=== PATIENT | female | born 1980 | race Two or more races ===

== ENCOUNTER 2021-08-08 14:18 | Emergency (ER) | payer OTHER ==
[~2021-08-08] VITALS: Ht 160 cm; Wt 127.0 kg
== END 2021-08-09 14:40 | disposition home or self-care (01) ==
LOC: ER 14:18
DX: O26.891 Other specified pregnancy related conditions, first trimester (principal); Z3A.01 Less than 8 weeks gestation of pregnancy; N93.9 Abnormal uterine and vaginal bleeding, unspecified; Z91.013 Allergy to seafood